=== PATIENT | male | born 1955 | race Caucasian/White ===

== ENCOUNTER 2023-04-29 08:34 | Outpatient (CLI) | payer MEDICARE, OTHER ==
[2023-04-29] MEDS ORDERED: Magnevist 469MG/ML 20 ML VIAL ONE (09:45)
== END 2023-04-29 08:35 | disposition home or self-care (01) ==
LOC: CSHMRI 08:34
PROVIDERS: ATTEND Nurse Practitioner Family
DX: N28.89 Other specified disorders of kidney and ureter (principal); N28.1 Cyst of kidney, acquired
CPT/HCPCS: 74183; 82565